=== PATIENT | female | born 1960 | race Caucasian/White ===

== ENCOUNTER → 2016-02-28 | Outpatient (CLI) | payer OTHER ==
--- NOTE | 2016-03-13 09:34 | MM ---
Reason for exam: screening (asymptomatic). Last mammogram was performed 8 years and 11 months ago. History: Patient is postmenopausal. Physical Findings: A clinical breast exam by your physician is recommended on an annual basis and results should be correlated with mammographic findings. MG Screening Mammo w CAD Bilateral CC and MLO view(s) were taken. Prior study comparison: March 22, 2007, bilateral taylor screening mammogram, performed at [facility]. May 04, 2005, bilateral screening mammogram, performed at [facility]. There are scattered fibroglandular densities. There is no discrete abnormality. No significant changes when compared with prior studies. ASSESSMENT: Negative, BI-RAD 1 RECOMMENDATION: Routine screening mammogram of both breasts in 1 year.
== END | disposition home or self-care (01) ==
LOC: RADMAMWWP 16:58
PROVIDERS: ATTEND Family Medicine
DX: Z12.31 Encounter for screening mammogram for malignant neoplasm of breast (principal)

== ENCOUNTER → 2016-09-02 | Outpatient (CLI) | payer BC, OTHER ==
[2016-09-02 12:54] LABS: ALT 48 U/L (9-52); AST 23 U/L (14-36); Alkaline Phosphatase 89 U/L (38-126); Anion Gap 9 mmol/L; Blood Urea Nitrogen 17 mg/dL (7-17); Calcium 9.3 mg/dL (8.4-10.2); Carbon Dioxide 26 mmol/L (22-30); Chloride 102 mmol/L (98-107); Glucose 100 mg/dL (74-99); Non-African American GFR(MDRD) >60 (>60 ml/min/1.73 sqM); Potassium 4.4 mmol/L (3.5-5.1); Sodium 137 mmol/L (137-145); Total Bilirubin 0.5 mg/dL (0.2-1.3); Total Protein 6.7 g/dL (6.3-8.2)
[2016-09-02 13:31] LABS: CH 31.3; CHCM 35.1; HCT 40.9 % (34.0-46.0); HDW 2.68; HGB 14.4 gm/dL (11.4-16.0); MCH 31.4 pg (25.0-35.0); MCHC 35.1 g/dL (31.0-37.0); MCV 89.5 fL (80.0-100.0); Mean Platelet Volume 7.3; RBC 4.57 m/uL (3.80-5.40); RDW 13.5 % (11.5-15.5); WBC 7.8 k/uL (3.8-10.6)
[2016-09-02 13:51] LABS: Follicle Stimulating Hormone 53.6 mIU/mL
[2016-09-02 14:07] LABS: Estradiol 24 pg/mL
[2016-09-02 14:22] LABS: Vitamin B12 978 pg/mL (239-931)
== END | disposition home or self-care (01) ==
LOC: LABWHC1 12:12
PROVIDERS: ATTEND Obstetrics & Gynecology Obstetrics
DX: E03.9 Hypothyroidism, unspecified (principal); F41.8 Other specified anxiety disorders; N64.4 Mastodynia; N95.9 Unspecified menopausal and perimenopausal disorder; E55.9 Vitamin D deficiency, unspecified; R37 Sexual dysfunction, unspecified; R63.5 Abnormal weight gain; E06.9 Thyroiditis, unspecified
CPT/HCPCS: 36415; 80053; 82306; 82607; 82670; 83001; 84403; 84436; 84443; 84481; 85027; 86376

== ENCOUNTER → 2016-11-04 | Outpatient (CLI) | payer BC, OTHER ==
[2016-11-05 01:14] LABS: Estradiol 45.8 pg/mL
== END | disposition home or self-care (01) ==
LOC: LABMAIN 18:08
PROVIDERS: ATTEND Obstetrics & Gynecology
DX: N95.1 Menopausal and female climacteric states (principal); R53.83 Other fatigue; R61 Generalized hyperhidrosis; F41.8 Other specified anxiety disorders
CPT/HCPCS: 36415; 82670; 83001; 84403

== ENCOUNTER → 2017-07-29 | Outpatient (CLI) | payer BC | END | disposition home or self-care (01) | LOC: LABWHC1 17:02 | PROVIDERS: ATTEND Obstetrics & Gynecology | DX: N95.9 Unspecified menopausal and perimenopausal disorder (principal); N92.5 Other specified irregular menstruation | CPT/HCPCS: 36415; 82670; 83001; 84403 ==

== ENCOUNTER → 2018-03-23 | Outpatient (CLI) | payer BC ==
--- NOTE | 2018-03-25 09:04 | MM ---
Reason for exam: screening (asymptomatic). Last mammogram was performed 2 years and 1 month ago. History: Patient is postmenopausal. Physical Findings: A clinical breast exam by your physician is recommended on an annual basis and results should be correlated with mammographic findings. MG 3D Screening Mammo W/Cad Bilateral CC and MLO view(s) were taken. Prior study comparison: February 28, 2016, bilateral MG screening mammo w CAD. February 09, 2015, mammogram, performed at [facility]. There are scattered fibroglandular densities. No significant changes when compared with prior studies. ASSESSMENT: Benign, BI-RAD 2 RECOMMENDATION: Routine screening mammogram of both breasts in 1 year.
== END | disposition home or self-care (01) ==
LOC: RADMAMWWP 13:54
PROVIDERS: ATTEND Obstetrics & Gynecology Obstetrics
DX: Z12.31 Encounter for screening mammogram for malignant neoplasm of breast (principal)
CPT/HCPCS: 77063; 77067

== ENCOUNTER → 2018-05-31 | Outpatient (CLI) | payer BC ==
[2018-05-31 17:37] LABS: Basophils % (A) 0 %; Eosinophils % (A) 1 %; HCT 38.8 % (34.0-46.0); HGB 13.2 gm/dL (11.4-16.0); Lymphocytes # (A) 2.3 k/uL (1.0-4.8); Lymphocytes % (A) 32 %; MCH 30.4 pg (25.0-35.0); MCHC 33.9 g/dL (31.0-37.0); MCV 89.5 fL (80.0-100.0); Mean Platelet Volume 7.1; Monocytes # (A) 0.5 k/uL (0-1.0); Monocytes % (A) 7 %; Neutrophils # (A) 4.1 k/uL (1.3-7.7); Neutrophils % (A) 57 %; Platelet Count 220 k/uL (150-450); RBC 4.33 m/uL (3.80-5.40); RDW 13.3 % (11.5-15.5); WBC 7.1 k/uL (3.8-10.6)
[2018-05-31 18:00] LABS: Anion Gap 8 mmol/L; Blood Urea Nitrogen 14 mg/dL (7-17); Carbon Dioxide 26 mmol/L (22-30); Chloride 104 mmol/L (98-107); Glucose 84 mg/dL (74-99); Potassium 4.5 mmol/L (3.5-5.1); Sodium 138 mmol/L (137-145)
[2018-05-31 18:05] LABS: Appearance,Urine Clear (Clear); Bacteria,Urine Few /hpf; Bilirubin,Urine Negative (Negative); Blood,Urine Trace (Negative); Color,Urine Colorless; Glucose,Urine (UA) Negative (Negative); Ketones,Urine Negative (Negative); Leukocyte Esterase,Urine Negative (Negative); Mucus,Urine Rare /hpf; Nitrite,Urine Negative (Negative); Protein,Urine Negative (Negative); RBC,Urine 1 /hpf (0-5); Specific Gravity,Urine 1.005 (1.001-1.035); Squamous Epithelial Cell,Urine 1 /hpf (0-4); Urobilinogen,Urine <2.0 mg/dL (<2.0); WBC,Urine <1 /hpf (0-5)
== END ==
LOC: LABPAT 17:05
PROVIDERS: ATTEND Obstetrics & Gynecology Obstetrics
DX: Z01.812 Encounter for preprocedural laboratory examination (principal); N95.0 Postmenopausal bleeding; N85.00 Endometrial hyperplasia, unspecified
CPT/HCPCS: 36415; 80051; 81001; 82565; 82947; 84520; 85025; 87086

== ENCOUNTER → 2018-06-07 | Outpatient (CLI) | payer BC | END | disposition home or self-care (01) | LOC: LABPAT 12:00 | PROVIDERS: ATTEND Obstetrics & Gynecology Obstetrics | DX: Z01.812 Encounter for preprocedural laboratory examination (principal); N95.0 Postmenopausal bleeding; N85.01 Benign endometrial hyperplasia | CPT/HCPCS: 86850; 86900; 86901 ==

== ENCOUNTER 2018-06-14 08:43 | Day surgery (SDC) | payer BC ==
[~2018-06-14 08:43] MED LIST: DEXAMETHASONE SOD PHOSPHATE 10 MG/ML 1 ML VIAL IV ONE; LACTATED RINGERS 1,000 ML IV SCH; MIDAZOLAM (PF) 2 MG/2 ML VIAL IV PRN; ONDANSETRON 4 MG/2 ML VIAL IVP ONE; Pre Op ABX Message 1 EACH MISC MISCELLANE ONE; SCOPOLAMINE 1.5MG/72HR PATCH TRANSDERM ONE; ceFAZolin IN SWFI 2 GM/20 ML SYRINGE IVP ONE
[2018-06-14] MEDS ORDERED: LIDOCAINE 1% 20 ML VIAL (10MG/ML) FOR IV START INTRADERMA ONE (09:30)
[2018-06-14] MEDS ORDERED: ROCURONIUM BROMIDE 10 MG/ML 10 ML VIAL IV ONE (10:25)
[2018-06-14] MEDS ORDERED: ePHEDrine SULFATE/0.9% NACL/PF 50 MG/5 ML SYRINGE IV ONE (10:25)
[2018-06-14] MEDS ORDERED: NEOSTIGMINE 1 MG/ML 10 ML VIAL ONE (10:25)
[2018-06-14] MEDS ORDERED: MIDAZOLAM 2 MG/2 ML VIAL ONE (10:25)
[2018-06-14] MEDS ORDERED: PROPOFOL 10 MG/ML 20 ML VIAL IV ONE (10:25)
[2018-06-14] MEDS ORDERED: LIDOCAINE 1% INJ 10MG/ML (20 ML MDV) ONE (10:25)
[2018-06-14] MEDS ORDERED: GLYCOPYRROLATE 0.2 MG/ML 2 ML VIAL ONE (10:25)
[2018-06-14] MEDS ORDERED: SUCCINYLCHOLINE CHLORIDE 100 MG/5 ML SYR IV ONE (10:25)
[2018-06-14] MEDS ORDERED: HYDROmorphone (PF) 1 MG/ML ONE (10:25)
[2018-06-14] MEDS ORDERED: fentaNYL (PF) 50 MCG/ML 2 ML AMP ONE (10:25)
[2018-06-14] MEDS ORDERED: Acetaminophen-Codeine 300-30mg TAB PO PRN ×2 (10:27)
[2018-06-14] MEDS ORDERED: BUPIVACAINE (PF) 0.5% 30 ML VIAL SQ ONE (11:22)
[2018-06-14] MEDS ORDERED: LACTATED RINGERS 1,000 ML IV ONE ×3 (12:23→13:00)
--- NOTE | 2018-06-14 12:27 | P.OP ---
Date of Procedure: 06/14/18 Preoperative Diagnosis: Endometrial hyperplasia, no atypia, failed medical management. Postoperative Diagnosis: Same Procedure(s) Performed: Robotic-assisted vaginal hysterectomy with bilateral salpingo-oophorectomy, diagnostic cystoscopy Anesthesia: KEIA Surgeon: Sofia Saleem Diesel Roller Operator #1: Merlyn Shannon Estimated Blood Loss (ml): 50 IV fluids (ml): 1,000 Urine output (ml): 150 Pathology: other (Uterus fallopian tubes ovaries) Disposition: PACU Indications for Procedure: Endometrial hyperplasia with no atypia failed response to medical management and desires definitive treatment Operative Findings: Omental adhesions to the anterior abdominal wall from the umbilicus to the anterior bladder wall. All were filmy and taken down sharply with scissors. Hemostasis was appreciated. Normal ovaries were noted bilaterally uterus was noted to be slightly boggy but not enlarged. On cystoscopy by normal bladder was noted bladder bubble was visualized and both ureteral orifices were noted to be spilling clear yellow urine. Description of Procedure: Patient was seen in the preoperative area and informed consent was obtained. Risks were reviewed with the patient in detail including but not limited to infection, bleeding, damage to bladder, bowel, ureteric, other pelvic structures. Patient stated understanding and desires to proceed to the operating suite. Patient was taken operating suite where general anesthesia was obtained without difficulty by the anesthesia department. She was then prepped and draped in the normal sterile fashion in the dorsal lithotomy position. A Hickey catheter was placed under sterile technique. A weighted speculum was placed in the posterior vaginal vault and the anterior lip of the cervix is visualized and grasped with a single-tooth tenaculum. The endocervical canal was then dilated to uterine manipulator was advanced into the endometrial cavity as a means to manipulate the uterus during the procedure. Attention was then turned to the patient's abdomen where 2 finger breaths above the umbilicus a small skin incision is made. Through this incision the Veress needle was placed. Once the Veress needle is deemed to be in appropriate position with a drop of CO2 pressure with insufflation of CO2 gas CO2 insufflation was allowed to occur. 3 L of gas were used to obtain pneumoperitoneum. At this time the incision was elongated and a 12 mm trocar and sleeve is placed through this incision and toward the pneumoperitoneum under direct visualization with the laparoscope in place. The above-noted findings were visualized. The lateral port sites are then placed in the right lateral side 10 cm lateral and 3 cm inferior to the midline port a 8 mm operative port is placed under direct visualization. At this time the disposable scissors were placed. Omental adhesions were then taken down to visualize the middle abdomen as we needed to visualize the insertion of the other port sites. Hemostasis of the omentum was visualized throughout the adhesiolysis. Attention was then turned to the patient's left side and 10 cm lateral and 300 cm inferior to the midline port and an additional 8 mm port was placed. This port was placed under direct visualization. In the left upper quadrant a 12 mm incision is made and a 12 mm port trocar and is placed under direct visualization. Remainder of the anterior omental adhesions were taken down sharply hemostasis was appreciated. Attention then turned to the patient's right infundibulopelvic ligament this was grasped coagulative distally proximal bleeding divided. This continued through the broad and toward the round which is likely distally and proximally divided. The bladder flap from the right was then created using sharp and blunt dissection. The infun dibulopelvic ligament was then dissected from omental adhesions on the left with good visualization of the the bowel and infundibulopelvic ligament. Once the fallopian tube was free the IP was then visualized coagulated distally and proximally divided. Hemostasis was appreciated. This continued through the broad and toward the round which is coagulative distally and proximally divided. The bladder flap from the left was then created using sharp and blunt dissection. At this time the descending branch of the uterine artery was visualized coagulated distally proximal been divided. This was then repeated on the opposite side with good hemostasis being appreciated. At this time the only remaining attachment was a vaginal attachment therefore colpotomy incision was made in a circumferential fashion uterus fallopian tubes and ovaries were delivered through the vaginal opening. The pelvis then copiously irrigated hemostasis was appreciated and the vaginal cuff was closed with [id number] sutures of 0 Vicryl. Approximately 4 sutures were used to obtain closure. The abdomen was inspected hemostasis was appreciated ureters were noted in the abdomen to be pulsating in the normal fashion. This time all instrument to the patient's abdomen and she was undocked in usual fashion. Attention was then turned to the patient's Hickey catheter which was removed without difficulty cyst oscopy was performed. A cystoscope was placed through the urethra and toward the bladder blade about was noted on the bladder serosa be intact throughout is noted to be saline clear yellow urine. The cystoscope was removed the Hickey catheter was then replaced. Attention was then turned the patient's abdomen where the skin incisions were closed with 4-0 Vicryl in a subcuticular fashion. Steri-Strips and sterile dressings were applied as needed. All instrument were noted to be counted correctly 2 patient tolerated procedure well and was taken to the recovery room awake and in stable condition.
[2018-06-14] MEDS ORDERED: ONDANSETRON 4 MG/2 ML VIAL IVP ONE (12:39)
[2018-06-14 12:49] VITALS: RESP 16
[2018-06-14] MEDS: HYDROmorphone 0.5 MG/0.5 ML SYRINGE IVP PRN ×4 (12:57→13:41)
[2018-06-14] MEDS ORDERED: IBUPROFEN IV 800 MG in SODIUM CHLORIDE 0.9% 250 ML IV ONE (13:00)
[2018-06-14] MEDS: ACETAMINOPHEN IV (For NPO) 1,000 MG in EMPTY BAG 1 BAG IVPB ONE ×2 (13:23→13:43)
[2018-06-14 14:32] VITALS: BMI 29.9
--- NOTE | 2018-06-14 17:51 | P.PN ---
Subjective Progress Note Date: 06/14/18 Principal diagnosis: POD 0 RAVH/BSO Patient is doing well, she is tolerating clear liquids without nausea or vomiting. She states her pain is well-controlled. Her Hickey is noted to be draining clear yellow urine. Objective - Vital Signs Vital signs: Vital Signs Temp 96.5 F L 06/14/18 14:24 Pulse 95 06/14/18 15:58 Resp 16 06/14/18 15:58 BP 130/73 06/14/18 15:58 Pulse Ox 98 06/14/18 15:58 Intake & Output 06/13/18 06/14/18 06/14/18 18:59 06:59 18:59 Intake Total 2300 Output Total 700 Balance 1600 Intake: IV 2300 Output: Urine 650 Estimated Blood Loss 50 - Constitutional General appearance: Present: average body habitus, cooperative, no acute distress - Gastrointestinal General gastrointestinal: Present: soft - Psychiatric Psychiatric: Present: A&O x's 3, appropriate affect Assessment and Plan (1) Endometrial hyperplasia without atypia, simple Current Visit: Yes Status: Acute Code(s): N85.01 - BENIGN ENDOMETRIAL HYPERPLASIA SNOMED Code(s): 067364494 Plan: Patient is doing well. We will continue routine postoperative care.
[2018-06-14] MEDS: IBUPROFEN 600 MG TAB PO PRN (21:25)
[2018-06-15] MEDS: IBUPROFEN 600 MG TAB PO PRN ×2 (05:31→10:46)
[2018-06-15] MEDS ORDERED: LEVOTHYROXINE 75 MCG TAB PO SCH (06:30)
[2018-06-15 07:25] LABS: Basophils % (A) 0 %; Eosinophils % (A) 0 %; HCT 38.2 % (34.0-46.0); HGB 12.9 gm/dL (11.4-16.0); Lymphocytes # (A) 1.7 k/uL (1.0-4.8); Lymphocytes % (A) 13 %; MCH 30.4 pg (25.0-35.0); MCHC 33.7 g/dL (31.0-37.0); MCV 90.2 fL (80.0-100.0); Mean Platelet Volume 6.9; Monocytes # (A) 0.8 k/uL (0-1.0); Monocytes % (A) 6 %; Neutrophils # (A) 10.3 k/uL (1.3-7.7); Neutrophils % (A) 80 %; Platelet Count 243 k/uL (150-450); RBC 4.24 m/uL (3.80-5.40); WBC 12.9 k/uL (3.8-10.6)
[2018-06-15 07:52] VITALS: BP 131/78; PULSE 99; TEMP 98.4
--- NOTE | 2018-06-15 08:25 | P.DS ---
Providers Date of admission: 06/14/2018 Expected date of discharge: 06/15/18 Attending physician: Sofia Saleem Primary care physician: [facility] - Discharge Diagnosis(es) (1) Endometrial hyperplasia without atypia, simple Current Visit: Yes Status: Acute (2) S/P hysterectomy with oophorectomy Current Visit: Yes Status: Acute Hospital Course: This is a pleasant 57-year-old female that presented yesterday for robotic cyst vaginal hysterotomy with bilateral sopping oophorectomy, diagnostic cystoscopy. Patient was seen initially in the office for episodes of postmenopausal bleeding for which an endometrial biopsy was obtained. Endometrial hyperplasia without atypia was noted progesterone therapy was begun. After 3 months a repeat biopsy was done which yielded continued hyperplasia without atypia despite progesterone treatment. Patient desires definitive treatment with hysterectomy and she was counseled on this in the office. Patient underwent surgery surgery was completed without difficulty for further details on the surgery please see the operative report. Patient's postoperative course has been uneventful. On this postop day #1 she is ambulating without difficulty. Hickey was discontinued at 5:30 and we are awaiting a spontaneous void prior discharge. She denies any vaginal bleeding. She is tolerating clear liquids without nausea or vomiting and requesting regular diet. She is passing flatus. She states her pain is well-controlled with oral ibuprofen Patient Condition at Discharge: Good Plan - Discharge Summary Discharge Rx Participant: Yes New Discharge Prescriptions: No Action Levothyroxine Sodium [Synthroid] 75 mcg PO DAILY Cholecalciferol (Vitamin D3) [Vitamin D3] 5,000 unit PO DAILY Acyclovir [Zovirax] 800 mg PO DAILY Discharge Medication List Acyclovir [Zovirax] 800 mg PO DAILY 06/02/18 [History] Cholecalciferol (Vitamin D3) [Vitamin D3] 5,000 unit PO DAILY 06/02/18 [History] Levothyroxine Sodium [Synthroid] 75 mcg PO DAILY 06/02/18 [History] Follow up Appointment(s)/Referral(s): Sofia Saleem DO [Doctor of Osteopathic Medicine] - 2 Weeks Patient Instructions/Handouts: Laparoscopic Hysterectomy (DC), Laparoscopic Hysterectomy (GEN) Discharge Disposition: HOME SELF-CARE
== END 2018-06-15 11:23 | disposition home or self-care (01) ==
LOC: OR 08:43 → 4FBP 12:30 → OR 06-15 11:23
PROVIDERS: ATTEND Obstetrics & Gynecology Obstetrics
DX: N95.0 Postmenopausal bleeding (principal); N80.0 Endometriosis of uterus; N84.0 Polyp of corpus uteri; N83.202 Unspecified ovarian cyst, left side; K66.0 Peritoneal adhesions (postprocedural) (postinfection); E07.9 Disorder of thyroid, unspecified; M79.7 Fibromyalgia; R79.89 Other specified abnormal findings of blood chemistry; Z79.890 Hormone replacement therapy; Z88.2 Allergy status to sulfonamides; Z87.891 Personal history of nicotine dependence; Z82.5 Family history of asthma and other chronic lower respiratory diseases; Z80.52 Family history of malignant neoplasm of bladder; Z84.89 Family history of other specified conditions
CPT/HCPCS: 58552; S2900; 81025; 85025; 86850; 86900; 86901; 88307

== ENCOUNTER → 2018-09-19 | Outpatient (CLI) | payer BC ==
[2018-09-19 17:17] LABS: Vitamin D 25 Hydroxy 59.1 ng/mL (30.0-100.0)
== END | disposition home or self-care (01) ==
LOC: LABWHC1 08:44
DX: E03.9 Hypothyroidism, unspecified (principal); F34.1 Dysthymic disorder
CPT/HCPCS: 36415; 82306; 82533; 82672; 84439; 84443; 84481; 86141

== ENCOUNTER → 2019-11-20 | Outpatient (CLI) | payer BC ==
[2019-11-21 16:44] LABS: Prolactin 3.3 ng/mL (2.8-29.2)
== END | disposition home or self-care (01) ==
LOC: LABWHC1 12:39
PROVIDERS: ATTEND Internal Medicine Endocrinology, Diabetes & Metabolism
DX: R53.83 Other fatigue (principal)
CPT/HCPCS: 36415; 82024; 82306; 82533; 82607; 84146; 84305

== ENCOUNTER → 2020-04-11 | Outpatient (CLI) | payer BC ==
--- NOTE | 2020-04-15 09:27 | MM ---
Reason for exam: screening (asymptomatic). Last mammogram was performed 2 years and 1 month ago. History: Patient is postmenopausal. Physical Findings: A clinical breast exam by your physician is recommended on an annual basis and results should be correlated with mammographic findings. MG 3D Screening Mammo W/Cad Bilateral CC and MLO view(s) were taken. Prior study comparison: March 23, 2018, bilateral MG 3d screening mammo w/cad. February 28, 2016, bilateral MG screening mammo w CAD. The breast tissue is heterogeneously dense. This may lower the sensitivity of mammography. No significant changes when compared with prior studies. ASSESSMENT: Benign, BI-RAD 2 RECOMMENDATION: Routine screening mammogram of both breasts in 1 year.
== END | disposition home or self-care (01) ==
LOC: RADMAMWWP 10:33
PROVIDERS: ATTEND Obstetrics & Gynecology Obstetrics
DX: Z12.31 Encounter for screening mammogram for malignant neoplasm of breast (principal)
CPT/HCPCS: 77063; 77067

== ENCOUNTER → 2020-06-25 | Outpatient (CLI) | payer OTHER ==
--- NOTE | 2020-06-25 16:35 | MR ---
EXAMINATION TYPE: MR brain wo/w con DATE OF EXAM: 06/25/2020 COMPARISON: NONE HISTORY: Other specified hypothyroidism, fatigue TECHNIQUE: Multiplanar, multisequence images of the brain and brainstem is performed without and with IV contras t, utilizing 7 mL intravenous Gadavist . FINDINGS: Diffusion weighted images demonstrate no evidence of a recent infarct or other diffusion ab normality. There is no extra-axial fluid collection or significant white matter signal abnormality. The ventricular system and cisternal spaces are normal in size and appearance. The brain volume is age appropriate. Midline structures demonstrate empty sella morphology. The craniocervical junction appears within no rmal limits. Post contrast images demonstrate no abnormal enhancement. The dural venous sinuses appe ar patent. The visualized sinuses are clear and the globes are intact. Slight prominence of CSF surro unding bilateral globes. IMPRESSION: Correlate to exclude intracranial hypotension otherwise unremarkable study.
== END | disposition home or self-care (01) ==
LOC: RADMRIMAIN 14:28
PROVIDERS: ATTEND Physician Assistant Medical
DX: E03.8 Other specified hypothyroidism (principal)
CPT/HCPCS: 70553; A9585

== ENCOUNTER → 2020-07-26 | Outpatient (CLI) | payer OTHER ==
--- NOTE | 2020-07-27 05:36 | MR ---
EXAMINATION TYPE: MR orbits wo/w con DATE OF EXAM: 07/26/2020 COMPARISON: 06/25/2020 MR scan of the brain HISTORY: Fluid seen around orbits on MRI 06-25-20. CONTRAST: Standard multiplanar, multisequence MRI departmental protocol utilizing 7 mL intravenous Gadavist sena olinium contrast. The globes are symmetric. Globes have normal size and contour. There is no evidence of retro-orbital mass. The extraocular muscles are symmetric. The optic nerves appear within normal limits. There is n o pathologic enhancement. Sella turcica appears normal. The optic chiasm appears normal. Pituitary st alk is in the midline. Paranasal sinuses appear intact. IMPRESSION: Negative MR scan of the orbits. No adverse change compared to old exam.
== END | disposition home or self-care (01) ==
LOC: RADMRIMAIN 17:09
PROVIDERS: ATTEND Physician Assistant Medical
DX: R90.89 Other abnormal findings on diagnostic imaging of central nervous system (principal)
CPT/HCPCS: 70543; A9585

== ENCOUNTER → 2021-04-21 | Outpatient (CLI) | payer OTHER ==
--- NOTE | 2021-04-21 15:12 | US ---
EXAMINATION TYPE: US carotid duplex BILAT DATE OF EXAM: 04/21/2021 COMPARISON: NONE CLINICAL HISTORY: R42 DIZZINESS. EXAM MEASUREMENTS: RIGHT: Peak Systolic Velocity (PSV) cm/sec ----- Right CCA: 104.0 ----- Right ICA: 127.6 ----- Right ECA: 90.1 ICA/CCA ratio: 1.2 RIGHT: End Diastole cm/sec ----- Right CCA: 29.9 ----- Right ICA: 40.9 ----- Right ECA: 15.0 LEFT: Peak Systolic Velocity (PSV) cm/sec ----- Left CCA: 93.0 ----- Left ICA: 112.1 ----- Left ECA: 94.0 ICA/CCA ratio: 1.0 LEFT: End Diastole cm/sec ----- Left CCA: 27.0 ----- Left ICA: 43.5 ----- Left ECA: 17.6 VERTEBRALS (direction of flow): Right Vertebral: Antegrade Left Vertebral: Antegrade Rhythm: Normal No significant stenosis seen. Mildly elevated right ICA. IMPRESSION: 1. Atheromatous plaquing with elevated velocity in the right internal carotid artery. Narrowing betwe en 50 and 69% may be present. Correlate with the patient's symptoms. Criteria for Assigning % of Stenosis / Diameter reduction (Estimation based on the indirect measurements of the internal carotid artery velocities (ICA PSV). 1. Normal (no stenosis)=ICA PSV < 125 cm/s: ratio < 2.0: ICA EDV<40 cm/s. 2. Less than 50% stenosis=ICA PSV < 125 cm/s: ratio < 2.0: ICA EDV<40 cm/s. 3. 50 to 69% stenosis=ICA PSV of 125 to 230 cm/s: ration 2.0 ? 4.0: ICA EDV 40-100 cm/s. 4. Greater than 70% stenosis to near occlusion= ICA PSV > 230 cm/s: ratio > 4.0: ICA EDV > 100 cm/s. 5. Near occlusion= ICA PSV velocities may be low or undetectable: variable ratio and ICA EDV. 6. Total occlusion=unable to detect flow.
== END | disposition home or self-care (01) ==
LOC: RADUSWWP 11:42
DX: I65.21 Occlusion and stenosis of right carotid artery (principal)
CPT/HCPCS: 93880

== ENCOUNTER → 2021-05-03 | Outpatient (CLI) | payer OTHER ==
[2021-05-03 11:21] LABS: HCT 40.4 % (37.2-46.3); HGB 13.6 g/dL (12.0-15.0); MCH 30.1 pg (27.0-32.0); MCHC 33.7 g/dL (32.0-37.0); MCV 89.4 fL (80.0-97.0); Mean Platelet Volume 10.4 fL (9.5-12.2); NRBC Per 100 WBC 0 /100 WBCS (0.0-0.0); Platelet Count 243 X 10*3/uL (140-440); RBC 4.52 X 10*6/uL (4.10-5.20); RDW 12.2 % (11.5-14.5); WBC 7.05 X 10*3/uL (4.50-10.00)
[2021-05-03 15:45] LABS: ALT 38 U/L (8-44); AST 24 U/L (13-35); African American GFR (CKD) 99.1 (60.0-200.0); BUN/Creat Ratio 15.17 Ratio (12.00-20.00); Blood Urea Nitrogen 11.5 mg/dL (9.0-27.0); Calcium 9.7 mg/dL (8.7-10.3); Chloride 103 mmol/L (96-109); Chol/HDL Ratio 4.98 Ratio; Glucose 99 mg/dL (70-110); LDL Cholesterol,Calculated 127.2 mg/dL (0.0-131.0); Non-African American GFR(CKD) 85.5 (60.0-200.0); Sodium 139 mmol/L (135-145)
== END | disposition home or self-care (01) ==
LOC: LABWHC1 08:22
PROVIDERS: ATTEND Nurse Practitioner Family
DX: E78.2 Mixed hyperlipidemia (principal)
CPT/HCPCS: 36415; 80048; 80061; 84450; 84460; 85027

== ENCOUNTER → 2021-08-21 | Outpatient (CLI) | payer BC ==
--- NOTE | 2021-08-21 15:00 | US ---
EXAMINATION TYPE: US thyroid st tissue head/neck DATE OF EXAM: 08/21/2021 COMPARISON: NONE CLINICAL HISTORY: E04.1 Nontoxic single thyroid nodule. GLAND SIZE: Right Lobe: 2.7 x 1.5 x 1.5 cm Overall Parenchyma: heterogeneous Left Lobe: 2.9 x 0.9 x 0.6 cm Overall Parenchyma: heterogeneous Isthmus Thickness: 0.2 cm NODULES RIGHT: # of nodules measured on right: 0 LEFT: # of nodules measured on left: 0 ISTHMUS: # of nodules measured in the isthmus: 0 Bilateral neck scanned, no evidence of lymphadenopathy. IMPRESSION: Diminutive thyroid lobes with glandular heterogeneity. No distinct nodules appreciated. Correlate wit h thyroid function testing.
== END | disposition home or self-care (01) ==
LOC: RADUSWWP 14:00
DX: E04.1 Nontoxic single thyroid nodule (principal)
CPT/HCPCS: 76536

== ENCOUNTER → 2021-08-21 | Outpatient (CLI) | payer OTHER ==
--- NOTE | 2021-08-21 14:50 | US ---
EXAMINATION TYPE: US mass soft tissue chest/back DATE OF EXAM: 08/21/2021 COMPARISON: NONE CLINICAL HISTORY: R22.2 Localized swelling, mass and lump. Patient had large palpable that has since mostly resolved. Area scanned today shows hypoechoic area 0 .4 x 0.2 x 0.2cm IMPRESSION: Tiny residual subcutaneous hypoechoic area may reflect a small residual sebaceous cyst.
== END | disposition home or self-care (01) ==
LOC: RADUSWWP 14:02
PROVIDERS: ATTEND Surgery Plastic and Reconstructive Surgery
DX: R22.2 Localized swelling, mass and lump, trunk (principal)

== ENCOUNTER → 2021-09-05 | Outpatient (CLI) | payer BC ==
[2021-09-05 11:35] LABS: C Reactive Protein, High Sens 5.49 mg/L (0.000-3.000)
[2021-09-05 11:37] LABS: Thyroid Peroxidase Antibodies <9.0 U/mL (0.0-33.0)
[2021-09-05 11:47] LABS: T4, Free (Free Thyroxine) 1.08 ng/dL (0.800-1.800)
== END | disposition home or self-care (01) ==
LOC: LABWHC1 07:45
PROVIDERS: ATTEND Internal Medicine Endocrinology, Diabetes & Metabolism
DX: E03.9 Hypothyroidism, unspecified (principal); M25.50 Pain in unspecified joint; R73.03 Prediabetes; R53.83 Other fatigue
CPT/HCPCS: 36415; 82533; 82607; 83036; 84439; 84443; 84481; 85652; 86038; 86141; 86376

== ENCOUNTER → 2021-10-24 | Outpatient (CLI) | payer BC ==
--- NOTE | 2021-10-24 15:37 | BD ---
EXAMINATION TYPE: Axial Bone Density DATE OF EXAM: 10/24/2021 COMPARISON: NONE CLINICAL HISTORY: 60 years year old Female. ICD-10 CODE: M81.0 age-related osteoporosis w/o path fra c Height: 5 FT 1 IN Weight: 166 FRAX RISK QUESTIONS: Alcohol (3 or more units per day): NO Family History (Parent hip fracture): NO Glucocorticoids (More than 3mos): NO (Ex: prednisone, prednisolone, methylprednisolone, dexamethasone, and hydrocortisone). History of Fracture in Adulthood: NO Secondary Osteoporosis: 1. Type 1 Diabetes: NO 2. Hyperthyroidism: NO 3. Menopause before 45: NO 4. Malnutrition: NO 5. Chronic liver disease: NO Rheumatoid Arthritis: NO Current Tobacco Use: NO RISK FACTORS HISTORY OF: Surgery to Spine/Hip(right/left)/Wrist (right/left): NO Family History of Osteoporosis: NO Active: YES Diet low in dairy products/other sources of calcium: NO Postmenopausal woman: YES Take estrogen and/or progesterone medications: CURRENTLY ON ESTRADIAL 4 YEARS Lost more than 2 inches in height since high school: NO Frequent falls: NO Poor Health: GOOD Hyperparathyroidism: NO Adrenal Insufficiency: NO MEDICATIONS: Thyroid Medications: YES Which medication: SYNTHROID How Lon YEARS Additional Medications: ESTRADIOL, ANTI VIRAL, SYNTHROID, TRIGLYCERIDE Additional History: EXAM MEASUREMENTS: Bone mineral densitometry was performed using the Trendrating System. Bone mineral density as measured about the Lumbar spine is: ----- L1-L4(G/cm2): 1.276 T Score Values are as follows: ----- L1: 1.0 ----- L2: 0.8 ----- L3: 1.0 ----- L4: 0.3 ----- L1-L4: 0.8 BASELINE Bone mineral density about the R hip (g/cm2): 1.003 Bone mineral density about the L hip (g/cm2): 0.985 T Score values are as follows: -----R Neck: -0.3 -----L Neck: -0.4 -----R Total: 0.5 -----L Total: 0.6 BASELINE FRAX%s: The graph provided illustrates a 6.3 % chance for a major osteoporotic fx and a 0.2 % chance for the hips probability for fx in 10 years time. IMPRESSION: Normal (Values between +1 and -1 indicate normal bone mass). Consider repeating this study in 5 year s or sooner if there is some new clinical indication. NOTE: T-SCORE=SD OF THE YOUNG ADULT MEAN.
== END | disposition home or self-care (01) ==
LOC: RADBDWWP 09:13
PROVIDERS: ATTEND Internal Medicine Endocrinology, Diabetes & Metabolism
DX: M81.0 Age-related osteoporosis without current pathological fracture (principal); Z78.0 Asymptomatic menopausal state
CPT/HCPCS: 77080

== ENCOUNTER → 2021-10-24 | Outpatient (CLI) | payer BC ==
[2021-10-24 19:58] LABS: T4, Free (Free Thyroxine) 1.19 ng/dL (0.800-1.800)
== END | disposition home or self-care (01) ==
LOC: LABWHC1 11:33
PROVIDERS: ATTEND Internal Medicine Endocrinology, Diabetes & Metabolism
DX: E03.9 Hypothyroidism, unspecified (principal); R89.1 Abnormal level of hormones in specimens from other organs, systems and tissues
CPT/HCPCS: 36415; 82024; 82533; 84439; 84443; 84481

== ENCOUNTER → 2022-06-24 | Outpatient (CLI) | payer BC ==
--- NOTE | 2022-06-25 09:16 | MM ---
Reason for Exam: Screening (asymptomatic). Last mammogram was performed 2 year(s) and 3 month(s) ago. Patient History: Menarche at age 13. First Full-Term at age 23. Left ovary removed at age 57. Right ovary removed at age 57. Hysterectomy at age 57. Postmenopausal. Patient used Estrogen for 4 years. Risk Values: Daisy 5 year model risk: 1.3%. NCI Lifetime model risk: 6.4%. Prior Study Comparison: 02/28/2016 Bilateral Screening Mammogram, [facility]. 03/23/2018 Bilateral Screening Mammogram, [facility]. 04/11/2020 Bilateral Screening Mammogram, [facility]. Tissue Density: There are scattered fibroglandular densities. Findings: Analyzed By CAD. . Benign-appearing right axillary lymph nodes are redemonstrated. There is no suspicious group of microcalcifications or new suspicious mass in either breast. Overall Assessment: Negative, BI-RAD 1 Management: Screening Mammogram of both breasts in 1 year. . Patient should continue monthly self-breast exams. A clinical breast exam by your physician is recommended on an annual basis. This exam should not preclude additional follow-up of suspicious palpable abnormalities. Note on Daisy scores and lifetime risk: 1. A Daisy score greater than 3% is considered moderate risk. If this is the case, consider specialist referral to assess eligibility for a risk reducing agent. 2. If overall lifetime risk for the development of breast cancer is 20% or higher, the patient may qualify for future screening with alternating mammogram and breast MRI. Electronically signed and approved by: Jose Eduardo Oconnor M.D.
== END | disposition home or self-care (01) ==
LOC: RADMAMWWP 07:39
PROVIDERS: ATTEND Family Medicine
DX: Z12.31 Encounter for screening mammogram for malignant neoplasm of breast (principal); Z78.0 Asymptomatic menopausal state
CPT/HCPCS: 77063; 77067

== ENCOUNTER → 2022-09-23 | Outpatient (CLI) | payer BC, OTHER ==
--- NOTE | 2022-09-23 11:03 | P.SLEEP ---
History of Present Illness DATE: 09/23/2022 CONSULTATION/NEW PATIENT EVALUATION HISTORY OF PRESENT ILLNESS/SLEEP-WAKE EVALUATION: 61-year-old lady had been evaluated in the sleep center for excessive daytime sleepiness and possible obstructive sleep apnea hypopnea syndrome. Patient had home sleep apnea test about 6 years ago, which was negative. SLEEP SCHEDULE: Usually sleep schedule from 9:30 PM to 5 AM on weekdays and from 10:30 PM to 6 AM on weekend. FALLING ASLEEP: No problems with falling asleep. DURING SLEEP: Patient wakes up from sleep several times with grinding teeth, episodes of palpitations. No history of hypnogogical hallucinations, sleep paralysis, or cataplexy. DURING THE DAY/WAKE STATE: In the morning patient also was wake up tired and feels sleepiness during the day. Slater sleepiness scale is 8. Patient possibly will be able to fall asleep several times during the day, if she is not at work she may take nap at 1 PM. PAST MEDICAL HISTORY: Depression, acid reflux, hypothyroidism, ALLERGY, sinuses problems, hyperlipidemia. PAST SURGICAL HISTORY: Hysterectomy, . MEDICATIONS: Synthroid 112 g once a day, Savella 25 mg twice a day, bupropion 150 mg once a day, Prilosec 20 mg once a day, Claritin 10 mg once a day. SOCIAL HISTORY: Positive history of smoking in the past quit 20 years ago, alcohol consumption occasional. FAMILY HISTORY: Hypertension, sleep apnea, cancer, diabetes, mental illness. REVIEW OF SYSTEMS: Multiple awakenings from sleep, sleepiness during the day. No fevers. No double vision. No recent chest pain. No shortness of breath. No abdominal pain. No bleeding episodes. No blood in urine. No seizure episodes. PHYSICAL EXAMINATION: GENERAL: A pleasant patient without any distress. VITAL SIGNS: BP 122/77 , HR 92 , RR 16 , weight 172.0 pounds, height 5 foot 0.5 inches, body mass index 33, temperature 97.9, oxygen saturation at room air 99% . HEENT: PERRLA, EOMI. Evaluation of oropharynx showed tongue protrudes midline, low position of soft palate Mallampati 4. NECK: Supple. No JVD. Thyroid is not palpable. 14-3/4 inches in circumference. LUNGS: Clear to percussion and to auscultation. Good air exchange. No wheezing or rhonchi. HEART: S1, S2 regular. No murmurs, gallops or rubs. ABDOMEN: Soft and nontender. Bowel sounds are present. No organomegaly appreciated. EXTREMITIES: No clubbing or cyanosis. LICENSED WEIGHER: Awake, alert, and oriented x3. Cranial nerves 2 to 7 intact. There is no fasciculation or atrophy noted. No focal deficits observed. ASSESSMENT: 1. Multiple awakenings from sleep, extremely low position of soft palate Mallampati 4, sleepiness after awakenings in the morning and during the day. Obstructive sleep apnea hypopnea syndrome. 2. Excessive daytime sleepiness, patient is able to fall asleep at a different time during the day. Differential diagnosis should include hypersomnia. 3. Depression. 4. Hyperlipidemia. 5 ALLERGY. 6 . Acid reflux. 7. Hypothyroidism. 8. Status post hysterectomy. 9 . Mild obesity, BMI 33.0. 10. History of grinding teeth. PLAN: 1. Polysomnography for evaluation of patient's breathing during sleep. Multiple sleep latency test if sleep study negative for obstructive sleep apnea hypopnea syndrome. 2. CPAP/BiPAP titration if sleep study confirms obstructive sleep apnea- hypopnea syndrome. 3. Preferable position during sleep on the side. 4. No driving if patient feels any sleepiness. Patient is aware of civil and criminal liability for unsafe driving. 5. Sleep hygiene with regular sleep time for at least 7.5-8 hours. 6. Watching and losing weight. Thank you very much for referring this patient for consultation. Sincerely, Pradeep Reyes MD, PhD, FAASM. Diplomat of [place] [employer], Sleep Medicine Board by [place] [employer] [place] [employer] [facility] Medications and Allergies Home Medications Medication Instructions Recorded Confirmed Type Acyclovir [Zovirax] 800 mg PO DAILY 06/02/18 06/14/18 History Cholecalciferol (Vitamin D3) 5,000 unit PO DAILY 06/02/18 06/14/18 History [Vitamin D3] Levothyroxine Sodium [Synthroid] 75 mcg PO DAILY 06/02/18 06/14/18 History Allergies Allergy/AdvReac Type Severity Reaction Status Date / Time clarithromycin [From Biaxin] Allergy Nausea & Verified 08/27/22 12:21 Vomiting Psbskzh-IMF-RkE Reductase Allergy Rash/Hives Verified 08/27/22 12:21 Inhibitor [Hxugqsy-Uok-Fip Reductase Inhibitor] Sulfa (Sulfonamide Allergy Rash/Hives Verified 08/27/22 12:21 Antibiotics) tramadol [From Ultram] AdvReac Nausea & Verified 08/27/22 12:21 Vomiting Sleep Note - Sleep Note Sleep Note: Temperature: Pulse Rate: Respiratory Rate: Blood Pressure: SpO2: Height: Weight: BMI: Neck Circumference:
== END ==
LOC: 3 N SLEEP 10:09 → MERGE 10:20
PROVIDERS: ATTEND Internal Medicine
DX: G47.33 Obstructive sleep apnea (adult) (pediatric) (principal); F32.A Depression, unspecified; E78.5 Hyperlipidemia, unspecified; K21.9 Gastro-esophageal reflux disease without esophagitis; G47.63 Sleep related bruxism; E03.9 Hypothyroidism, unspecified; E66.9 Obesity, unspecified; Z68.33 Body mass index [BMI] 33.0-33.9, adult; Z90.710 Acquired absence of both cervix and uterus; Z87.891 Personal history of nicotine dependence; Z88.5 Allergy status to narcotic agent; Z88.2 Allergy status to sulfonamides; Z88.8 Allergy status to other drugs, medicaments and biological substances; Z88.1 Allergy status to other antibiotic agents; Z79.890 Hormone replacement therapy
CPT/HCPCS: 99211

== ENCOUNTER → 2022-11-08 | Outpatient (CLI) | payer OTHER ==
[2022-11-09 17:48] LABS: Urine Alcohol Negative (Negative); Urine Barbiturate Negative (Negative); Urine Cocaine Negative (Negative); Urine Methadone Negative (Negative); Urine Opiates Negative (Negative); Urine Phencyclidine Negative (Negative)
--- NOTE | 2022-11-12 13:32 | P.PCN ---
Description of Procedure: POLYSOMNOGRAPHY REPORT PROCEDURE(S)/DATE(S): Polysomnography 11/08/2022, multiple sleep latency test 11/09/2022 CLINICAL: Patient has been seen in the sleep center for evaluation of obstructive sleep apnea-hypopnea syndrome. Please see my consultation. Sleep study has been done for evaluation of patient breathing during the sleep. PROCEDURE: The standard montage for clinical polysomnography included the electroencephalogram, the electrooculogram, the mentalis surface electromyog zhao and Lead II cardiography. The respiratory battery consisted of measurements of nasal/buccal air flow, pressure transducer measurements from nose, thoracic and/or abdominal effort and intercostal surface electromyography. Video monitoring has been done to check for any parasomnia events. Nocturnal oxyhemoglobin saturations were obtained by finger oximetry. Step-solano titration with positive airway pressure was utilized to control the respiratory events, if necessary. RESULTS: During the diagnostic sleep study sleep efficiency was slightly decreased 85.1 %. Latency to sleep onset was significantly prolonged to 41.5 min. Sleep architecture showed stage NI was normal 5.7 %, Delta sleep was normal 8.3 %, REM sleep was normal 26.0 %. Respiratory channel showed 5 obstructive apneas, 0 mixed apneas, 2 central apneas, 1 hypopneas with lowest oxygen level 92 %. Total apnea hypopnea index was 1.2. Heart rate was in the range between 86 and 100, average 95. EMG showed 0 periodic limb movements per hour. Multiplicity sleep latency test have been done on the following day, consisted from 5 naps, patient fell asleep on 2 naps and did not fell asleep on 3 naps. Mean sleep latency was 17.8 minutes, which is in normal range. No sleep onset REM periods have been documented. IMPRESSIONS: 1. No significant respiratory abnormalities have been documented during the sleep study, normal oxygenation during sleep 2. No significant periodic limb movements have been documented. 3. Multiple sleep latency test did not confirmed excessive daytime sleepiness. Please see other impressions from consultation PLAN: 1. I will see patient for follow-up visit to explain results of the test and recommendations 2. No driving if feeling sleepiness. 3. Sleep hygiene with regular time in bed for at least 7-1/2 hours. Thank you very much for allowing me to participate in the management of your patient. Sincerely, Pradeep Reyes MD, PhD, FAASM. Diplomat of [place] [employer], Sleep Medicine Board by [place] [employer] [facility] [place]
== END ==
LOC: EDSTATUS 19:20 → 3 N SLEEP 19:41
PROVIDERS: ATTEND Internal Medicine
DX: G47.33 Obstructive sleep apnea (adult) (pediatric) (principal); G47.10 Hypersomnia, unspecified; Z88.1 Allergy status to other antibiotic agents; Z88.3 Allergy status to other anti-infective agents; Z88.2 Allergy status to sulfonamides; Z88.5 Allergy status to narcotic agent; Z87.891 Personal history of nicotine dependence
CPT/HCPCS: 80306; 95805; 95810

== ENCOUNTER → 2022-12-21 | Outpatient (CLI) | payer OTHER ==
--- NOTE | 2022-12-21 19:27 | CA ---
Transthoracic Echo Report Name: Debby William Age: 62 Gender: F : 1960 Exam Date: 12/21/2022 17:47 Exam Location: [facility] Ht (in): 61 Wt (lb): 170 Ordering Physician: [facility], Clinic Attending/Referring Phys: Jes Ortega [facility] Analyst No Connolly [facility] Procedure CPT: Indications: R00.2 palpitations Cardiac Hx: Technical Quality: Technically difficult study Contrast 1: Total Dose (mL): Contrast 2: Total Dose (mL): MEASUREMENTS (Male / Female) Normal Values 2D ECHO LV Diastolic Diameter PLAX 3.4 cm 4.2 - 5.9 / 3.9 - 5.3 cm LV Systolic Diameter PLAX 2.5 cm IVS Diastolic Thickness 0.9 cm 0.6 - 1.0 / 0.6 - 0.9 cm LVPW Diastolic Thickness 0.9 cm 0.6 - 1.0 / 0.6 - 0.9 cm LV Relative Wall Thickness 0.5 LVOT Diameter 2.0 cm Ascending Aorta Diameter 2.7 cm M-MODE Aortic Root Diameter MM 2.9 cm LA Systolic Diameter MM 3.2 cm LA Ao Ratio MM 1.1 AV Cusp Separation MM 2.0 cm DOPPLER AV Peak Velocity 140.4 cm/s AV Peak Gradient 7.9 mmHg AV Mean Velocity 111.8 cm/s AV Mean Gradient 5.3 mmHg AV Velocity Time Integral 24.8 cm LVOT Peak Velocity 121.9 cm/s LVOT Peak Gradient 5.9 mmHg LVOT Velocity Time Integral 21.4 cm LVOT Stroke Volume 64.9 cm??? LVOT Stroke Volume Index 36.8 ml/m??? LVOT Cardiac Index 3640.3 cm???/min???m??? AV Area Cont Eq vti 2.6 cm??? AV Area Cont Eq pk 2.6 cm??? Mitral E Point Velocity 60.6 cm/s Mitral A Point Velocity 88.7 cm/s Mitral E to A Ratio 0.7 MV Deceleration Time 127.8 ms LV E' Lateral Velocity 11.2 cm/s Mitral E to LV E' Lateral Ratio 5.4 LV E' Septal Velocity 8.9 cm/s Mitral E to LV E' Septal Ratio 6.8 Right Atrial Pressure 3.0 mmHg FINDINGS Left Ventricle Left ventricular wall thickness normal. Small left ventricular cavity. Normal left ventricular systolic function with no obvious regional wall motion abnormalities. Left ventricular ejection fraction is estimated at 60-65%. Right Ventricle Right ventricle not well visualized. Right Atrium Right atrium not well visualized. Left Atrium Normal left atrial size. Mitral Valve Structurally normal mitral valve.trace mitral regurgitation. Aortic Valve Trileaflet aortic valve. No aortic valve stenosis or regurgitation. Tricuspid Valve Structurally normal tricuspid valve. No tricuspid regurgitation. Pulmonic Valve Pulmonic valve not well visualized. Pericardium No pericardial effusion. Aorta Normal size aortic root and proximal ascending aorta. CONCLUSIONS Technically difficult study. 1. Normal left ventricular size and systolic function 2. Limited Doppler study with no significant abnormalities Previewed by: Dr. Deisy Vazquez MD (Electronically Signed) Final Date: 21 December 2022 19:26
== END | disposition home or self-care (01) ==
LOC: RADECHMAIN 17:33
DX: R00.2 Palpitations (principal)
CPT/HCPCS: 93306

== ENCOUNTER → 2023-03-27 | Outpatient (CLI) | payer OTHER ==
[2023-03-27 13:39] LABS: T4, Free (Free Thyroxine) 1.48 ng/dL (0.80-1.80)
[2023-03-27 15:08] LABS: Follicle Stimulating Hormone 32.4 mIU/mL
== END | disposition home or self-care (01) ==
LOC: LABWHC1 08:18
DX: E23.7 Disorder of pituitary gland, unspecified (principal)
CPT/HCPCS: 36415; 82024; 82533; 83001; 83002; 83003; 84305; 84439; 84443

== ENCOUNTER → 2024-07-06 | Outpatient (CLI) | payer OTHER ==
--- NOTE | 2024-07-06 12:18 | MM ---
Reason for Exam: Screening (asymptomatic). Last mammogram was performed 2 year(s) and 0 month(s) ago. Patient History: Menarche at age 13. First Full-Term at age 23. Left ovary removed at age 57. Right ovary removed at age 57. Hysterectomy at age 57. Postmenopausal. Patient used Estrogen for 4 years. Risk Values: Daisy 5 year model risk: 1.4%. NCI Lifetime model risk: 6.0%. Prior Study Comparison: 03/23/2018 Bilateral Screening Mammogram, [facility]. 04/11/2020 Bilateral Screening Mammogram, [facility]. 06/24/2022 Bilateral MG 3D screening mammo w/cad, [facility]. Tissue Density: The breasts are heterogeneously dense, which may obscure small masses. Findings: Analyzed By CAD. There is no suspicious group of microcalcifications or new suspicious mass in either breast. Overall Assessment: Negative, BI-RAD 1 Management: Screening Mammogram of both breasts in 1 year. . Patient should continue monthly self-breast exams. A clinical breast exam by your physician is recommended on an annual basis. This exam should not preclude additional follow-up of suspicious palpable abnormalities. Note on Daisy scores and lifetime risk: 1. A Daisy score greater than 3% is considered moderate risk. If this is the case, consider specialist referral to assess eligibility for a risk reducing agent. 2. If overall lifetime risk for the development of breast cancer is 20% or higher, the patient may qualify for future screening with alternating mammogram and breast MRI. [facility], , 07/06/2024 12:15 PM. Electronically signed and approved by: Jose Eduardo Oconnor M.D.
== END | disposition home or self-care (01) ==
LOC: RADMAMWWP 11:43
PROVIDERS: ATTEND Family Medicine
DX: Z12.31 Encounter for screening mammogram for malignant neoplasm of breast (principal); R92.333 Mammographic heterogeneous density, bilateral breasts; Z78.0 Asymptomatic menopausal state
CPT/HCPCS: 77063; 77067